=== PATIENT | female | born 1955 | race Caucasian/White ===

== ENCOUNTER 2020-07-23 08:54 | Outpatient (CLI) | payer MEDICARE ==
--- NOTE | 2020-07-23 09:10 | RAD ---
XR Chest Pa Lat STANDARD HISTORY: Dyspnea COMPARISON: None FINDINGS: The heart size is normal. There is a small focal opacity in the lingula. No pneumothorax or pleural effusions. Degenerative changes seen in the spine IMPRESSION: Findings suspicious for lingular pneumonia. A follow-up exam should be obtained after airam atment
== END 2020-07-23 08:55 | disposition home or self-care (01) ==
LOC: BICRAD 08:54
PROVIDERS: ATTEND Internal Medicine Critical Care Medicine
DX: R06.00 Dyspnea, unspecified (principal)
CPT/HCPCS: 71046

== ENCOUNTER 2020-09-11 08:29 | Outpatient (CLI) | payer MEDICARE | END 2020-09-11 08:30 | disposition home or self-care (01) | LOC: BICRAD 08:29 | PROVIDERS: ATTEND Internal Medicine Critical Care Medicine | DX: R06.00 Dyspnea, unspecified (principal) | CPT/HCPCS: 71046 ==

== ENCOUNTER 2021-03-27 11:11 | Outpatient (CLI) | payer MEDICARE | END 2021-03-27 11:12 | disposition home or self-care (01) | LOC: BICRAD 11:11 | PROVIDERS: ATTEND Internal Medicine Critical Care Medicine | DX: R06.00 Dyspnea, unspecified (principal) | CPT/HCPCS: 71046 ==

== ENCOUNTER 2022-03-20 09:46 | Outpatient (CLI) | payer MEDICARE | END 2022-03-20 09:47 | disposition home or self-care (01) | LOC: BICRAD 09:46 | PROVIDERS: ATTEND Internal Medicine Critical Care Medicine | DX: R06.00 Dyspnea, unspecified (principal) | CPT/HCPCS: 71046 ==

== ENCOUNTER 2022-08-19 12:51 | Outpatient (CLI) | payer MEDICARE | END 2022-08-19 12:52 | disposition home or self-care (01) | LOC: BICMAMMO 12:51 | PROVIDERS: ATTEND Nurse Practitioner Family | DX: Z13.820 Encounter for screening for osteoporosis (principal); Z78.0 Asymptomatic menopausal state; M85.851 Other specified disorders of bone density and structure, right thigh; M85.852 Other specified disorders of bone density and structure, left thigh | CPT/HCPCS: 77080 ==

== ENCOUNTER 2023-02-18 09:56 | Outpatient (CLI) | payer MEDICARE | END 2023-02-18 09:57 | disposition home or self-care (01) | LOC: BICMAMMO 09:56 | PROVIDERS: ATTEND Nurse Practitioner Family | DX: Z12.31 Encounter for screening mammogram for malignant neoplasm of breast (principal) | CPT/HCPCS: 77063; 77067 ==

== ENCOUNTER 2023-05-05 09:28 | Emergency (ER) | payer MEDICARE ==
[2023-05-05 10:30] LABS: #Basophils 0.1 thou/uL (0.0-0.2); #Eosinphils 0.2 thou/uL (0.0-0.7); #Monocytes 0.6 thou/uL (0.11-0.59); #Neutrophils 5.3 thou/uL (1.40-6.50); %Basophils 0.9 % (0.0-1.0); %Eosinophils 2.3 % (0.0-10.0); %Lymphocytes 20.8 % (21.0-51.0); %Monocytes 7.4 % (0.0-10.0); %Neutrophils 68.3 % (42.0-75.0); Hematocrit 47.3 % (36.0-47.0); Hemoglobin 15.4 g/dL (12.0-16.0); Mean Corpuscular HGB CONC 32.6 g/dL (32.0-36.0); Mean Corpuscular Hemoglobin 29.2 pg (27.0-31.0); Mean Corpuscular Volume 89.6 fl (78.0-98.0); Mean Platelet Volume 9.7 fL (7.4-10.4); Platelet Count 343 10x3/uL (130-400); RBC Distribution Width 13.5 % (11.5-14.5); Red Blood Cell (RBC) Count 5.28 mill/uL (4.20-5.40); White Blood Cell (WBC) Count 7.7 10x3/uL (4.8-10.8)
[2023-05-05 10:57] LABS: Troponin I Less than 0.010 ng/mL (< 0.028)
[2023-05-05 11:01] LABS: ALT (SGPT) 22 U/L (8-55); AST (SGOT) 22 U/L (5-34); Albumin 5.2 g/dL (3.4-4.8); Alkaline Phosphatase 67 U/L (40-110); Anion Gap 19 mmol/L (10-20); BUN (Urea Nitrogen) 18 mg/dL (9.8-20.1); Bilirubin, Total 0.6 mg/dL (0.2-1.2); Calc. Creatinine Clearance 0 mL/min (70-130); Calcium 10.7 mg/dL (7.8-10.44); Carbon Dioxide 23 mmol/L (23-31); Chloride 102 mmol/L (98-107); Estimated GFR 81; Glucose 108 mg/dL (80-115); Potassium 3.6 mmol/L (3.5-5.1); Protein, Total 8.2 g/dL (5.8-8.1); Sodium 140 mmol/L (136-145)
[2023-05-05 11:13] LABS: Bacteria/HPF None Seen HPF (None Seen); Bilirubin Negative (Negative); Blood, Urine Negative (Negative); CAUTI Indications for Culture Dysuria,urgency,freq; Clarity Clear (Clear); Glucose, Urine (Dipstick) Normal (Negative); Ketone, Urine Negative (Negative); Leukocyte 25 Leu/uL (Negative); Nitrite Negative (Negative); Protein, Urine (Dipstick) 10 mg/dL (Neg-Trace); RBC/HPF 0-3 HPF (0-3); Specific Gravity, Urine 1.012 (1.002-1.036); Squamous Epithelial 0-3 HPF (0-3); Urobilinogen Normal mg/dL (Less than 2); WBC/HPF 0-3 HPF (0-3); pH, Urine 6.5 (5.0-9.0)
[2023-05-05 11:18] LABS: Urine Culture Reflex No No
== END 2023-05-05 12:00 | disposition home or self-care (01) ==
LOC: ERS 09:28
DX: R53.1 Weakness (principal); R03.0 Elevated blood-pressure reading, without diagnosis of hypertension; I10 Essential (primary) hypertension; E03.9 Hypothyroidism, unspecified; E78.00 Pure hypercholesterolemia, unspecified; Z79.899 Other long term (current) drug therapy; Z79.84 Long term (current) use of oral hypoglycemic drugs
CPT/HCPCS: 71045; 80053; 81001; 83880; 84443; 84480; 84484; 85025; 93005